=== PATIENT | male | born 1995 | race Caucasian/White ===

== ENCOUNTER 2018-01-15 21:05 | Emergency (ER) | payer MEDICAID ==
[~2018-01-15] VITALS: Ht 165.1 cm; Wt 50.5 kg
[~2018-01-15 21:05] MED LIST: BUPR-197 PO; NOVOLOGP2 SQ; NOVONP2 SQ; PHEN100 PO
[2018-01-15 21:14] VITALS: BP 131/91; PULSE 109; RESP 18; TEMP 99; O2SAT 98
[2018-01-15] MEDS ORDERED: NOVO7030P2 SQ ×2 (21:27)
[2018-01-15] MEDS ORDERED: NOVORP2 SQ (21:27)
[2018-01-15] MEDS ORDERED: METH10TA PO (21:28)
[2018-01-15] MEDS ORDERED: ALUMINUM/MAGNESIUM/SIMETH 30 ML CUP PO ONE (21:45)
[2018-01-15] MEDS ORDERED: ONDANSETRON ODT 4 MG TAB PO ONE (21:45)
[2018-01-15] MEDS ORDERED: LORazepam 2 MG/ML VIAL IV PUSH ONE (22:15)
[2018-01-15] MEDS ORDERED: ZOFR4TAB PO (22:33)
[2018-01-15] MEDS ORDERED: LORA-392 PO (22:33)
--- NOTE | 2018-01-15 22:34 | PD ---
HPI Chief Complaint: GI Complaint Time Seen by Provider: 21:28 Travel History International Travel<30 days: No Contact w/Intl Traveler<30days: No Traveled to known affect area: No History of Present Illness HPI Patient vomited up reddish material mother was with him he was shaking tremulous apparently he says he is in benzo withdrawal he takes Xanax daily and is out of his Xanax then after the episode a friend gave him some Xanax and now he feels better brings the vomitus in a bag at this time his vitals are normal heart rate is normal and he is saying that he feels fine but he knows that it is because of benzo withdrawal denies chest pain and at this time he is awake alert blood pressure is 124/60 PFSH Past Medical History Hx Anticoagulant Therapy: No ADD: Yes ADHD: Yes Autoimmune Disease: No Blood Disorders: No Anxiety: Yes Depression: No Heart Rhythm Problems: No Cancer: No Cardiovascular Problems: No High Cholesterol: No Chemotherapy: No Chest Pain: No Congestive Heart Failure: No Cerebrovascular Accident: No Diabetes: Yes (Type 1 ) Patient Takes Glucophage: No Diminished Hearing: No Endocrine: Yes Gastrointestinal Disorders: No Genitourinary: No Immune Disorder: No Musculoskeletal: No Neurologic: Yes (seizures ) Psychiatric: Yes Reproductive: No Respiratory: No Immunizations Current: Yes Seizures: Yes Thyroid Disease: No Tetanus Vaccination: < 5 Years Influenza Vaccination: No Past Surgical History Abdominal Surgery: Yes (APPY) Appendectomy: Yes Hysterectomy: No Other Surgery: Yes Social History Alcohol Use: Yes Tobacco Use: Yes (1 PPD) Substance Use: Yes (MJ last night, Hx Heroin use (Months ago), 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 ) Allergies-Medications (Allergen,Severity, Reaction): Coded Allergies: levetiracetam (Unverified Allergy, Intermediate, 04/28/17) "CANT WALK" Reported Meds & Prescriptions Reported Meds & Active Scripts Active Zofran (Ondansetron HCl) 4 Mg Tab 4 Mg PO Q6HR PRN Ativan (Lorazepam) 0.5 Mg Tab 0.5 Mg PO Q8H PRN Reported Methadone (Methadone HCl) 10 Mg Tab 150 Mg PO DAILY Novolin R Inj (Insulin Human Regular) 1,000 Unit/10 Ml Vial 12 Units SQ PRN Novolin 70-30 Inj (Insulin Human Isoph/Insulin Regular) 1,000 Unit/10 Ml Vial 12 Units SQ HS Novolin 70-30 Inj (Insulin Human Isoph/Insulin Regular) 1,000 Unit/10 Ml Vial 40 Units SQ DAILY Review of Systems Except as stated in HPI: all other systems reviewed are Neg Gastrointestinal: Positive: Nausea, Vomiting, Abdominal Pain Physical Exam Narrative GENERAL: appears wide-eyed slightly dissociative appearance anxious affect SKIN: Warm and dry. HEAD: Atraumatic. Normocephalic. EYES: Pupils equal and round. No scleral icterus. No injection or drainage. ENT: No nasal bleeding or discharge. Mucous membranes pink and moist. NECK: Trachea midline. No JVD. CARDIOVASCULAR: Regular rate and rhythm. RESPIRATORY: No accessory muscle use. Clear to auscultation. Breath sounds equal bilaterally. GASTROINTESTINAL: Abdomen soft, non-tender, nondistended. Hepatic and splenic margins not palpable. MUSCULOSKELETAL: Extremities without clubbing, cyanosis, or edema. No obvious deformities. NEUROLOGICAL: Awake and alert. No obvious cranial nerve deficits. Motor grossly within normal limits. Five out of 5 muscle strength in the arms and legs. Normal speech. PSYCHIATRIC: slightly dissociative appearance anxious affect Data Data Last Documented VS Vital Signs Date Time Temp Pulse Resp B/P (MAP) Pulse Ox O2 Delivery O2 Flow Rate FiO2 01/15/18 21:14 99.0 109 18 131/91 (104) 98 Orders Orders Blood Glucose (01/15/18 21:29) Al-Mag Hy-Si 40-40-4 Mg/Ml Liq (Mag-Al P (01/15/18 21:45) Ondansetron Odt (Zofran Odt) (01/15/18 21:45) Lorazepam Inj (Ativan Inj) (01/15/18 22:15) Ed Discharge Order (01/15/18 22:48) Electrocardiogram (01/15/18 22:20) MDM Medical Decision Making Medical Screen Exam Complete: Yes Emergency Medical Condition: Yes Differential Diagnosis anxiety disorder , dissociative disoder , personality disorder , panic attack , other Narrative Course Ativan IM and discharged home with RX for 8 pills ativan tabs until seen by his psychiatrist Diagnosis Primary Impression: Vomiting Qualified Codes: R11.10 - Vomiting, unspecified Additional Impression: Anxiety disorder Qualified Codes: F41.9 - Anxiety disorder, unspecified Scripts Ondansetron (Zofran) 4 Mg Tab 4 MG PO Q6HR Y for NAUSEA OR VOMITING, #10 TAB 0 Refills Prov: Oziel Henderson MD 01/15/18 Lorazepam (Ativan) 0.5 Mg Tab 0.5 MG PO Q8H Y for ANXIETY AND/OR AGITATION, #8 TAB 0 Refills Prov: Oziel Henderson MD 01/15/18 Disposition: 01 DISCHARGE HOME Condition: Good Oziel Henderson MD January 15, 2018 22:34
--- NOTE | 2018-01-16 13:41 | EKG ---
Date Performed: 01/15/2018 Time Performed: 22:20:33 PTAGE: 22 years EKG: Sinus rhythm POSSIBLE LEFT ATRIAL ENLARGEMENT BORDERLINE ECG PREVIOUS TRACING : 05/14/2015 21.42 Since the previous tracing, no significant change noted DOCTOR: Darryl Vang Interpretating Date/Time 01/16/2018 13:41:31
== END 2018-01-15 23:10 | disposition home or self-care (01) ==
LOC: NEPC 21:05
DX: R11.10 Vomiting, unspecified (principal); F41.9 Anxiety disorder, unspecified; F90.9 Attention-deficit hyperactivity disorder, unspecified type; E10.9 Type 1 diabetes mellitus without complications; F17.200 Nicotine dependence, unspecified, uncomplicated; Z79.4 Long term (current) use of insulin; Z86.69 Personal history of other diseases of the nervous system and sense organs; Z79.899 Other long term (current) drug therapy
CPT/HCPCS: 93005; 96374; 99284; J2060